=== PATIENT | female | born 1965 | race Caucasian/White ===

== ENCOUNTER → 2017-04-23 | Outpatient (CLI) | payer BC ==
[2017-04-23 14:53] LABS: BASO % 0.5 %; BASO ABS # 0.03 K/uL (0-0.2); COMPLETE YES; EOS % 0.5 %; HEMATOCRIT 43.5 % (37-47); LYMPH % 32.9 %; LYMPH ABS # 1.98 K/uL (1.2-3.4); MEAN CELL VOLUME 90.4 fL (80-100); MEAN CORPUSCULAR HEMOGLOBIN 30.1 pg (25-34); MEAN CORPUSCULAR HGB CONC 33.3 g/dl (32-36); MEAN PLATELET VOLUME 10.1 fL (7.4-10.4); MONO % 6.7 %; NEUT % 59.4 %; PLATELET COUNT 370 K/uL (130-400); RED BLOOD COUNT 4.81 M/uL (4.2-5.4); WHITE BLOOD COUNT 6.01 K/uL (4.8-10.8)
[2017-04-23 15:10] LABS: ALB/GLOB RATIO 1.1 (0.9-2); ALKALINE PHOSPHATASE 74 U/L (45-117); ALT/SGPT 33 U/L (12-78); AST/SGOT 22 U/L (15-37); BLOOD UREA NITROGEN 14 mg/dl (7-18); BUN/CREATININE RATIO 17.1 (10-20); CALCIUM 9.5 mg/dl (8.5-10.1); CARBON DIOXIDE 29 mmol/L (21-32); CHLORIDE 107 mmol/L (98-107); CHOLESTEROL 172 mg/dl (0-200); CHOLESTEROL/HDL RATIO 3.3; CREATININE 0.84 mg/dl (0.60-1.20); GLUCOSE 121 mg/dl (70-99); HDL CHOLESTEROL 52 mg/dl; LDL CHOLESTEROL CALCULATED 93 mg/dl; POTASSIUM 4.1 mmol/L (3.5-5.1); SODIUM 142 mmol/L (136-145); TRIGLYCERIDES 137 mg/dl (0-150); VERY LOW DENSITY LIPOPROT CALC 27 mg/dl
== END | disposition home or self-care (01) ==
LOC: C.LABSPEC 13:41
PROVIDERS: ATTEND Family Medicine
DX: E78.2 Mixed hyperlipidemia (principal); Z68.41 Body mass index [BMI] 40.0-44.9, adult; Z00.00 Encounter for general adult medical examination without abnormal findings

== ENCOUNTER 2019-11-15 05:05 | Inpatient (IN) ==
--- NOTE | 2019-10-16 15:13 | PAT Medication Instructions ---
Medication Instructions Date of Service October 16, 2019 Home Medications calcium carbonate [Tums] 200 mg PO UD PRN ranitidine HCl [Zantac 75] 75 mg PO BID PRN celecoxib [Celebrex] 200 mg PO QPM tramadol 50 mg PO Q6H PRN ASK your surgeon for instructions celecoxib [Celebrex] 200 mg PO QPM DO NOT take the morning of surgery calcium carbonate [Tums] 200 mg PO UD PRN ranitidine HCl [Zantac 75] 75 mg PO BID PRN Take morning of surgery With a small sip of water, OTHERWISE NOTHING TO EAT OR DRINK AFTER MIDNIGHT: tramadol 50 mg PO Q6H PRN (okay to take up to 4 hours prior to surgery if needed) Other Notes If you have any questions please call us at [phone] or [phone] or [phone] or [phone]
--- NOTE | 2019-10-17 11:12 | Anesthesiology Consultation ---
Date of Service October 17, 2019 Assessment & Plan (1) Encounter for pre-operative examination: PCP Clearance (Adrian) 11/02/19 = "Ms. Carrera was seen in the office and pre-op testing was reviewed and she is cleared for total knee arthroplasty." Chart Review Chart Review: Acceptable Risk for Surgery and Patient seen in Pre Admission Testing Teaching & Discussion Instructed NPO after midnight before surgery, except medications with 15 cc of water. Medication instructions provided according to the PAT guidelines. History Surgery Operation Date: 11/15/19 07:30 Proposed Procedures p Left Total Knee Arthroplasty - Josh Desai MD Height/Weight Height: 5 ft 4 in Weight: 120.8 kg Allergies Allergy/AdvReac Type Severity Reaction Status Date / Time Jzoqecs-Psr-Ape Reductase AdvReac Unknown Muscle Pain Verified 10/10/19 09:15 Inhibitor adhesive tape AdvReac Blister Verified 10/10/19 09:15 Medications Home Medications Medication Instructions Recorded Confirmed Last Taken calcium carbonate [Tums] 200 mg PO UD PRN 07/19/18 10/10/19 Unknown ranitidine HCl [Zantac 75] 75 mg PO BID PRN 08/31/18 10/10/19 08/30/18 21:30 celecoxib [Celebrex] 200 mg PO QPM 10/10/19 10/10/19 Unknown tramadol 50 mg PO Q6H PRN 10/10/19 10/10/19 Unknown Past Medical History Medical History (Updated 11/13/19 @ 09:57 by Odin Kitchen) GERD (gastroesophageal reflux disease) Hyperlipidemia No meds Morbid obesity No blood products Former JW, prefers not to have products "but will if really necessary" and states would "override" her decision anyway. OK to have type and screen. Osteoarthritis TMJ (dislocation of temporomandibular joint) ONCE LOCKED - SEVERAL YEARS AGO Exercise / Class Metabolic Activity II 4-5 Yardwork/Stairs/Walk up hill (does multiple flights of stairs daily, though somewhat limited by knee pain) Past Family History Family History Father History of pacemaker Renal cell carcinoma Myocardial infarction Mother Renal cell carcinoma Mother Family history of reaction to anesthesia PONV, hypotension Family history of diabetes mellitus Uncle Family hx of colon cancer Family history of diabetes mellitus Past Surgical History Surgical History History of anesthesia reaction Hypotension History of carpal tunnel release Rt History of hysterectomy History of right knee joint replacement 08/31/2018 [facility] Hx of arthroscopy of left knee Hx of arthroscopy of right knee Hx of laparoscopy Nausea and vomiting after administration of anesthetic agent Past Anesthesia History No Family Hx of Anesthesia Complications (other than father PONV) Pt reports remote h/o hypontension with one previous GA, (recalls 60's/40's) + PONV with GA, none with SAB with previous TKA History of PONV History of PONV and Hx of Motion Sickness Social History Smoking Status: Never smoker Do You Dip or Chew Tobacco: No Hx Alcohol Use: Yes Alcohol type: wine alcohol intake frequency: a few times a month Hx Substance Use: No substance use type: does not use Review of Systems Pt denies any recent chest pain, shortness of breath, palpitations, cough, fever or URI. Physical Exam Vital Signs BP: 126/84 P: 78bpm SPO2: 96% RA T: 98.3 F R: 16 Constitutional + obese ENMT Mouth: + chipped teeth (bottom L molar); no dental restorations and no loose teeth Thyromental Distance: < 3.5 Finger Breadths (3) Mallampati Class: II Neck normal visual inspection; neck extension not limited Respiratory normal respiratory effort Auscultation: lungs clear to auscultation bilaterally Cardiovascular Rate/Rhythm: regular rate and regular rhythm (with notable increase in rate with inspiration) Heart Sounds: no murmur Extremities: no edema Testing Laboratory Results 10/17/19 11:21 10/17/19 11:21 PT 9.8 Seconds (9.0-12.0) 10/17/19 11:21 INR 1.0 (0.9-1.1) 10/17/19 11:21 APTT 26.2 Seconds (21.0-31.0) 10/17/19 11:21 Hemoglobin A1c 6.0 % (4.5-5.6) H 10/17/19 11:21 Urine Color Yellow 10/17/19 11:21 Urine Appearance Clear (Clear) 10/17/19 11:21 Urine pH 5.5 (4.5-7.5) 10/17/19 11:21 Ur Specific [place] 1.026 (1.000-1.030) 10/17/19 11:21 Urine Protein Negative (Negative) 10/17/19 11:21 Urine Glucose (UA) Negative (Negative) 10/17/19 11:21 Urine Ketones Negative (Negative) 10/17/19 11:21 Urine Nitrite Negative (Negative) 10/17/19 11:21 Ur Leukocyte Esterase Negative (Negative) 10/17/19 11:21 Blood Type O Positive 10/17/19 11:21 Antibody Screen NEGATIVE 10/17/19 11:21 Electrocardiogram Date: 10/17/19 Findings: + NSR @ (66) Chest X-Ray Date: 10/17/19 Findings: + NAD
--- NOTE | 2019-10-17 12:06 | XRay Report ---
XR chest Pre-admission PA/Lat CLINICAL HISTORY: pat preoperative evaluation COMPARISON STUDY: No previous studies for comparison. FINDINGS: The bones soft tissues and hemidiaphragms are normal. The cardiomediastinal silhouette is n ormal. The lungs are clear. The pulmonary vasculature is normal. IMPRESSION: Negative chest. The above report was generated using voice recognition software. It may contain grammatical, syntax or spelling errors. Electronically signed by: Sebastián Mcwilliams M.D. 10/17/2019 12:04 PM
[2019-10-17 12:48] LABS: Basophils # (auto) 0.02 K/uL (0-0.2); Basophils % (auto) 0.4 %; Eosinophils # (auto) 0.02 K/uL (0-0.5); Eosinophils % (auto) 0.4 %; Hematocrit (blood only) 41.9 % (37-47); Lymphocytes # (auto) 1.99 K/uL (1.2-3.4); Lymphocytes % (auto) 41.4 %; Mean Corpuscular Hemoglobin 30.4 pg (25-34); Mean Corpuscular Hgb Conc 33.4 g/dL (32-36); Mean Corpuscular Volume 91.1 fL (80-100); Mean Platelet Volume 10.4 fL (7.4-10.4); Monocytes # (auto) 0.32 K/uL (0.11-0.59); Monocytes % (auto) 6.7 %; Neutrophils # (auto) 2.46 K/uL (1.4-6.5); Neutrophils % (auto) 51.1 %; Platelet Count 301 K/uL (130-400); RDW Coefficient of Variation 13.6 % (11.5-14.5); RDW Standard Deviation 44.9 fL (36.4-46.3); White Blood Count 4.81 K/uL (4.8-10.8)
[2019-10-17 12:58] LABS: Partial Thromboplastin Time 26.2 Seconds (21.0-31.0); Prothrombin Time 9.8 Seconds (9.0-12.0)
[2019-10-17 13:04] LABS: Albumin Level 3.7 gm/dl (3.4-5.0); Calcium 9.6 mg/dl (8.5-10.1); Creatinine Clr Calc Pharmacy 92.6 ml/min; Est GFR (African American) 85.2; Est GFR (Non-African American) 73.5; Potassium 4.2 mmol/L (3.5-5.1)
[2019-10-17 13:07] LABS: Estimated Average Glucose 126 mg/dl
[2019-10-17 13:24] LABS: Appearance Urine Clear (Clear); Bilirubin Urine Negative (Negative); Blood Urine Negative (Negative); Color Urine Yellow; Glucose Urine UA Negative (Negative); Ketones Urine Negative (Negative); Leukocyte Esterase Urine Negative (Negative); Nitrite Urine Negative (Negative); Protein Urine Negative (Negative); Specific Gravity Urine 1.026 (1.000-1.030); Urobilinogen Urine Negative (Negative); pH Urine 5.5 (4.5-7.5)
--- NOTE | 2019-11-14 18:19 | History and Physical Report ---
DATE OF ADMISSION: 11/15/2019 CHIEF COMPLAINT: Chronic left knee pain and instability. HISTORY OF PRESENT ILLNESS: This is a 54-year-old female patient of Dr. Desai'yvonne complaining of chronic left knee pain and instability, longstanding, now progressively getting worse. The patient has been diagnosed with end-stage osteoarthritis per clinical and radiographic exams. The patient has failed conservative treatment including intra-articular injections, Viscosupplementation, anti-inflammatories and tramadol and a brace. The patient has increased pain with weightbearing activities and her pain does interfere with her activities of daily living. The patient wished to proceed with a left total knee arthroplasty. PAST MEDICAL HISTORY: Osteoarthritis, TMJ, acid reflux, obesity, dental issues. SOCIAL HISTORY: Nonsmoker, occasional drinker. FAMILY HISTORY: Noncontributory. REVIEW OF SYSTEMS: Chronic left knee pain and instability. Otherwise, denies any shortness of breath, chest pain, nausea, vomiting or any other joint complaints. PAST SURGICAL HISTORY: Hysterectomy, right knee replacement and multiple arthroscopic knee surgeries. MEDICATIONS: 1. Tramadol 50 mg every 6 hours p.r.n. 2. Celebrex 200 mg daily. ALLERGIES: No known drug allergies. PHYSICAL EXAMINATION: GENERAL: Well-developed, well-nourished 54-year-old female in no acute distress. She is alert and oriented x3 and pleasant. HEENT: Normocephalic, atraumatic. Extraocular motions are intact. Pupils are equal and reactive to light. HEART: Regular rate and rhythm, no murmurs. LUNGS: Clear. ABDOMEN: Soft, nontender, bowel sounds present. EXTREMITIES: Left knee 0-115 degrees of range of motion. She has a neutral alignment. She has 5/5 strength. She has crepitation with passive range of motion. She has a mild effusion. Neurologically and neurovascularly she is intact in her left lower extremity. DIAGNOSES: Left knee end-stage osteoarthritis, TMJ, acid reflux, obesity, dental issues. PLAN: The patient was advised of her diagnosis. Indications, risks, benefits, postop course have all been reviewed. The patient wished to proceed with a left total knee arthroplasty. Necessary consent forms, preoperative testing and clearances will be obtained.
[2019-11-15] MEDS ORDERED: ROPIVACAINE 0.5% HCL/PF 150 MG, BUPIVACAINE 0.5% MPF 30 ML, EPINEPHrine 30MG/30ML (OR U... INSTIL SCH (06:00)
[2019-11-15] MEDS ORDERED: TRANEXAMIC ACID 1,000 MG **IV Pre-op IV SCH (06:00)
[2019-11-15] MEDS ORDERED: LR 15ML/HR IV SCH (06:00)
[2019-11-15] MEDS ORDERED: ACETAMINOPHEN 500 MG TAB PO SCH (06:00)
[2019-11-15] MEDS ORDERED: CEFAZOLIN 2000MG 2,000 MG/15 ML SYR IV SCH (06:00)
[2019-11-15] MEDS ORDERED: TRANEXAMIC ACID 1,000 MG **IV Intra-op IV SCH (06:00)
[2019-11-15] MEDS ORDERED: dexAMETHasone 4 MG TAB PO SCH (06:00)
[2019-11-15] MEDS ORDERED: CeleBREX 200 MG CAP PO SCH (06:00)
[2019-11-15] MEDS ORDERED: CEFAZOLIN 3000MG 72.5 ML IV SCH (06:00)
[2019-11-15] MEDS ORDERED: FAMOTIDINE 20 MG TAB PO SCH (06:00)
[2019-11-15] MEDS ORDERED: LR 500ML BOLUS, THEN 15ML/HR IV SCH (06:00)
[2019-11-15] MEDS ORDERED: METOCLOPRAMIDE HCL 10 MG TABLET PO SCH (06:00)
[2019-11-15] MEDS ORDERED: GABAPENTIN 900 MG DOSE PO SCH (06:00)
[2019-11-15] MEDS ORDERED: BUPIVACAINE 0.5 % 5 MG/1 ML PF 10ML VIAL ONE (06:37)
[2019-11-15] MEDS ORDERED: ROPIVACAINE 0.5% 5 MG/ML 30 ML VIAL ONE (06:38)
[2019-11-15] MEDS ORDERED: ONDANSETRON INJ 2 MG/ML 2 ML VIAL ONE (06:43)
[2019-11-15] MEDS ORDERED: PROPOFOL IV EMULSION 10 MG/ML 20 ML VIAL IV ONE ×2 (06:43→08:47)
[2019-11-15] MEDS ORDERED: MIDAZOLAM HCL 1 MG/ML 2ML VIAL ONE ×2 (06:43→07:37)
[2019-11-15] MEDS ORDERED: LIDOCAINE HCL 2% 2 ML VIAL/AMP(20MG/ML) INFIL ONE ×2 (06:43→08:32)
[2019-11-15] MEDS ORDERED: fentaNYL citrate 100 MCG/2 ML VIAL ONE (06:43)
--- NOTE | 2019-11-15 06:58 | History & Physical Bridge Note ---
Date of Service November 15, 2019 History & Physical Bridge Note I have examined the patient, reviewed the History & Physical and in the interval since the performance of the History & Physical I have noted the following changes of clinical significance: no changes noted
[2019-11-15] MEDS ORDERED: HYDROmorphone INJ 2 MG/ML SYR/VIAL IV PRN (07:00)
[2019-11-15] MEDS ORDERED: ONDANSETRON INJ 2 MG/ML 2 ML VIAL IV PRN ×2 (07:00→10:55)
[2019-11-15] MEDS ORDERED: fentaNYL citrate 100 MCG/2 ML VIAL IV PRN (07:00)
[2019-11-15] MEDS ORDERED: ATROPINE SULFATE 0.1 MG/ML 10ML SYR IV PRN (07:00)
[2019-11-15] MEDS ORDERED: METOCLOPRAMIDE HCL INJ 5 MG/ML 2 ML VIAL IV PRN (07:00)
[2019-11-15] MEDS ORDERED: ePHEDrine sulfate 50 MG/ML AMP IV PRN (07:00)
[2019-11-15] MEDS ORDERED: PROMETHAZINE HCL 12.5 MG in SODIUM CHLORIDE 0.9% 50 ML IV PRN (07:00)
[2019-11-15] MEDS ORDERED: BACITRACIN INJ 50,000 UNIT VIAL ONE (07:04)
[2019-11-15] MEDS ORDERED: ORTHO JOINT ANESTHETIC ONE (07:04)
[2019-11-15] MEDS ORDERED: PHENYLEPHRINE HCL 10 MG/ML VIAL ONE (08:32)
[2019-11-15] MEDS ORDERED: PHENYLEPHRINE 100MCG/ML 5ML SYR ONE (08:32)
[2019-11-15] MEDS ORDERED: ePHEDrine sulfate 50 MG/ML AMP ONE (08:32)
--- NOTE | 2019-11-15 09:44 | Post Operative Brief Note ---
Immediate Post Op Note v1 Date of Surgery November 15, 2019 Pre & Post Diagnosis Operation Date: 11/15/19 07:15 Pre-Op Diagnosis: Unilateral Primary Osteoarthritis, Left Knee, morbid obesity BMI 45.4 Post-Op Diagnosis: Unilateral Primary Osteoarthritis, Left Knee, morbid obesity BMI 45.4 I identified the patient and participated in the time-out.: Yes Procedure Operation Date: 11/15/19 07:15 Actual Procedures p Left Total Knee Arthroplasty(Left), increased difficulty due to morbid obesity BMI 45.4, superficial wound VAC application- Josh Desai MD Surgeon Josh Desai MD Loan Examiner MARLEY Nicholson Estimated Blood Loss 5 Findings Consistent with Post-Op Diagnosis Specimens Bone cuts Drains Hemovac Drain Anesthesia Type MAC Spinal Regional Complications none Disposition Accompanied Patient To Recovery: No Disposition: Recovery Room Overlapping Procedure I was present for: the critical portions of procedure. I was immediately available: during the entire case.
--- NOTE | 2019-11-15 09:53 | Operative Report ---
Post Operative Report Pre & Post Diagnosis Operation Date: 11/15/19 07:15 Pre-Op Diagnosis: Unilateral Primary Osteoarthritis, Left Knee, morbid obesity BMI 45.4 Post-Op Diagnosis: Unilateral Primary Osteoarthritis, Left Knee, morbid obesity BMI 45.4 I identified the patient and participated in the time-out.: Yes Procedure Operation Date: 11/15/19 07:15 Actual Procedures p Left Total Knee Arthroplasty(Left), increased difficulty BMI 45.4, application superficial wound VAC- Josh Desai MD Surgeon Josh Desai MD Clinical Laboratory Science Professor MARLEY Nicholson Estimated Blood Loss 5 Findings Consistent with Post-Op Diagnosis Specimens Bone cuts Drains 2 Hemovac Anesthesia Type MAC Spinal Regional Complications none Disposition Accompanied Patient To Recovery: No Disposition: Recovery Room Indications 54-year-old female with severe left knee osteoarthritis progressive over time [id number] patellofemoral joint with bone loss and bone wear of the patella. Patient has tricompartmental DJD with neutral alignment. Patient is also morbidly obese. Patient had a right knee replacement in the past and did quite well with that procedure. Description of Procedure The patient was taken to the operating room and anesthetized under spinal MAC regional. Patient was placed supine on the the operating table. A pneumatic tourniquet was placed about the obese left upper thigh. The knee exam demonstrated 15 degree flexion contracture further flexion to 100 degrees and no instability. The involved leg was elevated exsanguinated with Esmarch bandage and the pneumatic tourniquet was raised to 350 millimeters mercury. A slightly larger than typical longitudinal incision was made across the anterior knee for exposure in the obese knee. Skin flaps were elevated. An incision was made into the medial retinaculum and extended up into the mid third of the quadriceps tendon and extended down to the tibial tubercle. Intra-articular findings demonstrated severe patellofemoral DJD with bone loss patella due to chronic wear large patellofemoral osteophytes and eburnated bone with ridging. Patient had tricompartmental osteoarthritic disease in the other compartments intact cruciate ligaments. Patient had significant obese knee. The knee was exposed by excising cruciate ligaments and menisci. The infrapatellar fat pad was resected. The fat pad over the anterior femur at the upper aspect of the articular surface was resected for placement of the component in that area. A subperiosteal peel lateral release was performed around the patella. The Martinez & Nephew journey 2.0 total knee arthroplasty system was utilized for the procedure. The custom femoral cutting guide was pinned in position. The distal femoral cut was made. The size 5, 5 in 1 cutting block was placed. The anterior posterior and chamfer cuts were made. The knee was extended and a free hand cut technique was performed to the patella. The patella with was measured and the width was reproduced using a 38 symmetrical patella component. 3 drill holes are made for the patella component pegs. The tibia was then subluxed. The custom tibial cutting block was pinned in position and the proximal tibial cut was made with the oscillating saw. The size 4 tibial trial was externally rotated in line with the tibial tubercle and pinned in position. The punch for the stem was used. The femoral trial was inserted and centered the notch cutting devices were used and the collet was placed. Tibial trials were used for the insert. The size 12 trial gave balanced ligaments through full range of motion. Patient has 0 through 125 degrees range of motion. Patella tracking was assessed with range of motion. The patella tracked centrally. The trials were removed. The Orthomix anesthetic cocktail was injected per protocol. The cut bone surfaces and soft tissue were copiously irrigated with antibiotic solution with bacitracin. The final components were cemented with Simplex cement. The final components were Martinez and journey 2.0 size 5 left posterior stabilized femoral component, 4 tibial baseplate, 12 posterior stabilized tibial polyethylene insert, 38 symmetrical patella. While the cement cured the Betadine soak was used per protocol. When the cement cured the knee was copiously irrigated with pulsatile lavage antibiotic solution with bacitracin. 2 drains were brought out laterally connected to Hemovac. The quadriceps tendon and medial retinaculum were closed with interrupted [id number] #1 Vicryl sutures. The knee was taken through full range of motion and repair was secure. The subcutaneous tissues were closed with #1 Vicryl and 2-0 Vicryl sutures. The skin was closed with amairani. A Dede superficial wound VAC was applied. The tourniquet was let down and the patient had good capillary refill to the extremity. The patient tolerated the procedure well. My physician oral surgery assistant MARLEY Nicholson assisted in the procedure including prepping draping leg positioning soft tissue retraction instrument management and assisted in the closure, superficial wound VAC application,dressings application and will participate in postoperative care the patient. There was increased level difficulty due to morbid obesity BMI 45.4 adding approximately 25 minutes to the procedure. I attest to the content of the Intraoperative Record and any orders documented therein. Any exceptions are noted below.
--- NOTE | 2019-11-15 10:22 | XRay Report ---
XR knee LT 1 or 2V routine HISTORY: 54 years-old Female Surgical Post Op left knee total joint arthroplasty. History of degener ative joint disease COMPARISON: None available TECHNIQUE: 2 views of the left knee FINDINGS: Left knee total joint arthroplasty and patella resurfacing demonstrates satisfactory alignment. No op aque foreign body or acute fracture. Anterior midline skin amairani are noted along with expected post surgical soft tissue swelling and deep tissue air with surgical drainage catheter. IMPRESSION: Satisfactory alignment of the left knee total joint arthroplasty. ACT 112: Negative or not required by law. The above report was generated using voice recognition software. It may contain grammatical, syntax o r spelling errors. Electronically signed by: Kyle Kendall M.D. 11/15/2019 10:21 AM
[2019-11-15] MEDS ORDERED: MAGNESIUM HYDROXIDE SUSP 30 ML UDC PO PRN (10:55)
[2019-11-15] MEDS ORDERED: bisacodyL 10 MG SUPP PR PRN (10:55)
[2019-11-15] MEDS ORDERED: CALCIUM CARBONATE 500 MG CHEWABLE TAB PO PRN (10:55)
[2019-11-15] MEDS ORDERED: NALOXONE HCL 0.4 MG/1 ML VIAL/CARP IV PRN (10:55)
[2019-11-15] MEDS ORDERED: HYDROmorphone INJ 0.5 MG/0.5 ML SYR IV PRN (10:55)
--- NOTE | 2019-11-15 11:04 | Anesthesiology Progress Note ---
Date of Service November 15, 2019 Anesthesia Post Procedure Vital Signs Vital Signs: Temp Pulse Pulse Resp BP Pulse Ox 11/15/19 10:35 75 15 96/63 L 97 11/15/19 10:25 69 15 98/64 L 96 11/15/19 10:15 36.9 C 61 15 99/65 L 95 11/15/19 10:05 76 14 98/61 L 95 11/15/19 09:55 77 15 102/60 94 11/15/19 09:46 37.2 C 85 15 100/63 94 11/15/19 05:34 36.7 C 76 18 88/56 L 94 Transfer of Care Handoff Completed per policy Notes Mental Status: alert / awake / arousable and participated in evaluation Patient Amnestic to Procedure: Yes Nausea / Vomiting: adequately controlled Pain: adequately controlled Airway Patency, RR, SpO2: stable & adequate BP & HR: stable & adequate Hydration State: stable & adequate Neuraxial Anesthesia: was administered and sensory block is resolving Anesthetic Complications: no major complications apparent
[2019-11-15] MEDS: SODIUM CHLORIDE 0.9% 1000ML 1,000 ML IV SCH ×2 (11:07→21:04)
--- NOTE | 2019-11-15 13:00 | Hospitalist Consultation ---
Date of Consultation November 15, 2019 Assessment & Plan (1) Status post total left knee replacement: - Pain management, bowel regimen and DVT ppx with xarelto per the primary team - Follow CBC with am labs - Pt is a former Jehovas witness and states that she does not prefer to have transfusion of any blood products but would consider this if "it were really necessary" - PT/OT consults - plans to follow with [facility] in [place] as outpt upon dc (2) Prediabetes: - A1C on 10/16 was 6.0 - discussed having fasting repeat labs as outpatient sometime in January to monitor, she also has a routine PCP appt in April. - Diet of less carbs, less sugar was encouraged. Pt agreeable to DM diet while here in hospital. - Will trend glucose with morning labs, follow up with PCP regarding initiation of metformin vs aggressive weight loss after surgical procedure and with improved ability to exercise - Recommend glucometer upon discharge to monitor glucose - Consider clinical informatics educator consultation prior to discharge. (3) Morbid obesity with BMI of 40.0-44.9, adult: - Diet and exercise to be encouraged upon discharge - BMI of 45.4 (4) GERD (gastroesophageal reflux disease): - Continue ranitidine 75 mg BID, tums prn (5) Osteoarthritis: - Pain managment with oxycodone and dilaudid prn, holding outpt ibuprofen, continue celebrex (6) DVT prophylaxis: teds on nonaffected leg, xarelto 10 mg PO to start tonight CODE: FULL Dispo: From home, likely discharge within 1-2 days. Thank you for involving us in the care of Mrs. Carrera. Please do not hesitate to call with questions or concerns. Medicine service will follow along. History of Present Illness Reason for Consultation: Medical management Requesting Physician: Dr. Desai Attending Physician: Josh Desai MD History of Present Illness This is a 54 yo F with PMHx of prediabetes, morbid obesity with BMI of 45.4, GERD, HLD, osteoarthritis and hx of right TKA, who underwent elective Left total knee arthroplasty by Dr. Desai on 11/15/19. She reports doing well. Pt had eaten and drank something since coming up to the floor without difficulty. Last BM was this morning, urinated in bed but was due to anesthesia not yet worn off, no hx of incontinence. She anticipates home discharge and will do PT/OT at [facility] in [place] as outpatient. Discussion regarding diet and exercise was held with pt and explanation of A1C being 6.0, and why she was on a diabetic diet. All her questions and concerns were addressed. Allergies Allergy/AdvReac Type Severity Reaction Status Date / Time Dlxlmig-Gyz-Mhs Reductase AdvReac Unknown Muscle Pain Verified 11/15/19 05:33 Inhibitor adhesive tape AdvReac Blister Verified 11/15/19 05:33 Home Medications Home Medications Medication Instructions Recorded Confirmed Type calcium carbonate [Tums] 200 mg PO UD PRN 07/19/18 11/15/19 History ranitidine HCl [Zantac 75] 75 mg PO BID PRN 08/31/18 11/15/19 History celecoxib [Celebrex] 200 mg PO QPM 10/10/19 11/15/19 History tramadol 50 mg PO Q6H PRN 10/10/19 11/15/19 History ibuprofen 400 mg PO Q6H PRN 11/15/19 11/15/19 History Patient History Family History Father History of pacemaker Renal cell carcinoma Myocardial infarction Mother Renal cell carcinoma Mother Family history of reaction to anesthesia PONV, hypotension Family history of diabetes mellitus Uncle Family hx of colon cancer Family history of diabetes mellitus Social History Preferred Language: Palauan Communication Ability: Effective Visual Impairment: Limited Marketing Producer Required: No Beliefs That Will Affect Care: Cheondoism Cheondoism Beliefs: christian - no blood products marital status: twice Current Living Situation: Spouse current occupational status: employed 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 [place] Other Information That Helps Us Care for You: No Feels Safe at Home: Yes Safety Concerns: Feels Safe At This Time Smoking Status: Never smoker Do You Dip or Chew Tobacco: No ; Second Hand Exposure: Yes (as a child) ; Hx Alcohol Use: Yes Alcohol type: wine Hx Substance Use: No Review of Systems Review of Systems: Constitutional: No fever, sweats or chills Eyes: No diplopia, no worsening or blurred vision ENT: normal hearing, no trouble swallowing Respiratory: No cough, sputum, dyspnea at rest or on exertion Cardiovascular: No chest pain, tightness or palpitations Abdomen: No pain, nausea, vomiting, diarrhea or constipation Musculoskeletal: No joint pain, calf pain, swelling Neurologic: No weakness, numbness/tingling, or balance problems Psychiatric: No anxiety or depression Skin: No rash or itch Physical Exam Physical Exam: General: awake, alert, no apparent distress Head: Normocephalic, atraumatic ENT: PERRL, EOMI, no pharyngeal exudate, mucous membranes moist Chest: Clear to auscultation, on room air, no adventitious breath sounds Cardiac: Regular rate and rhythm, no murmur, no JVD, normal peripheral pulses, good capillary refill Abdominal: NABS x 4 quadrants, soft, nontender to palpation, no rebound, guarding or tenderness Extremities: + LLE with PINA bandage in place, dressing nonsaturated, + hemovac drain, icepack in place, no peripheral edema or erythema, calfs nontender to palpation Psych: Normal mood and affect Neuro: AAO x 3, no gross motor deficits, + able to move feet and wiggle toes, sensation intact distally, speech is clear Results & Data Vital Signs (Past 12 Hours) Vital Signs Temp Pulse Pulse Pulse Resp BP Pulse Ox 11/15/19 12:45 36.4 C L 74 14 101/67 94 11/15/19 11:45 36.9 C 69 14 104/69 93 11/15/19 11:15 36.7 C 70 14 97/64 L 92 11/15/19 10:45 36.8 C 70 14 102/70 97 11/15/19 10:35 75 15 96/63 L 97 11/15/19 10:25 69 15 98/64 L 96 11/15/19 10:15 36.9 C 61 15 99/65 L 95 11/15/19 10:05 76 14 98/61 L 95 11/15/19 09:55 77 15 102/60 94 11/15/19 09:46 37.2 C 85 15 100/63 94 11/15/19 05:34 36.7 C 76 18 88/56 L 94 PG Care Time/CCT Total # of Minutes Spent Total Time Spent with Patient: Total time spent is greater than 50% in coordination of care (as documented) at patient's floor/unit and/or counseling patient: (1) GERD (gastroesophageal reflux disease) Esophagitis presence: esophagitis presence not specified Qualified Code(s): K21.9 - Gastro-esophageal reflux disease without esophagitis
[2019-11-15] MEDS: ACETAMINOPHEN 500 MG TAB PO SCH ×2 (13:37→21:37)
[2019-11-15] MEDS: OXYCODONE HCL IR 5 MG TAB (IMMEDIATE RELEASE) PO PRN ×2 (15:55→20:46)
[2019-11-15] MEDS: CEFAZOLIN 2000MG 2,000 MG/15 ML SYR IV SCH ×2 (16:05→23:18)
[2019-11-15] MEDS: DOCUSATE SODIUM 100 MG CAP PO SCH (21:37)
[2019-11-15] MEDS: CeleBREX 200 MG CAP PO SCH (21:37)
[2019-11-15] MEDS: SENNA 8.6 MG TAB PO SCH (21:37)
[2019-11-16] MEDS: OXYCODONE HCL IR 5 MG TAB (IMMEDIATE RELEASE) PO PRN ×6 (01:22→23:51)
[2019-11-16] MEDS: ACETAMINOPHEN 500 MG TAB PO SCH ×3 (06:08→21:39)
[2019-11-16 06:33] LABS: Hematocrit (blood only) 35.3 % (37-47); Hemoglobin 11.8 g/dL (12.0-16.0); Mean Corpuscular Hemoglobin 30.4 pg (25-34); Mean Corpuscular Hgb Conc 33.4 g/dL (32-36); Mean Platelet Volume 10.1 fL (7.4-10.4); Platelet Count 279 K/uL (130-400); RDW Coefficient of Variation 13.6 % (11.5-14.5); RDW Standard Deviation 45.2 fL (36.4-46.3); Red Blood Count 3.88 M/uL (4.2-5.4); White Blood Count 10.41 K/uL (4.8-10.8)
[2019-11-16 07:03] LABS: BUN Creatinine Ratio 17.8 (10-20); Calcium 8.5 mg/dl (8.5-10.1); Creatinine Clr Calc Pharmacy 89.1 ml/min; Est GFR (African American) 81.8; Est GFR (Non-African American) 70.6; Potassium 3.8 mmol/L (3.5-5.1)
[2019-11-16] MEDS: CeleBREX 200 MG CAP PO SCH ×2 (08:27→21:39)
[2019-11-16] MEDS: MULTIVITAMIN TAB PO SCH (08:27)
[2019-11-16] MEDS: RIVAROXABAN 10 MG TABLET PO SCH (08:27)
[2019-11-16] MEDS: DOCUSATE SODIUM 100 MG CAP PO SCH ×2 (08:27→21:39)
--- NOTE | 2019-11-16 09:13 | Orthopedic Progress Note ---
Date of Service November 16, 2019 Assessment & Plan (1) Status post total left knee replacement: POD #1, Left TKA PT/ OT DVT proph- Xarelto D/C Plans- Home w OPPT As per medicine. Subjective POD #1 Doing well. Denies SOB, CP, N/V+. Pain controlled well. Wishes for OPPT on D/C. Physical Exam Physical Exam: Left knee dressings c/d/i, no drainage. Toes/ ankle mobile. No calf tenderness. N/V+ A&Ox3. Results & Data Vital Signs (Past 12 Hours) Vital Signs Temp Pulse Resp BP Pulse Ox 11/16/19 07:32 36.8 C 71 18 120/74 96 11/16/19 03:39 37.0 C 79 16 108/61 95 11/15/19 23:48 37.0 C 81 16 110/69 93
--- NOTE | 2019-11-16 16:44 | Hospitalist Progress Note ---
Date of Service November 16, 2019 Assessment & Plan (1) Status post total left knee replacement: - Pain management, bowel regimen and DVT ppx with xarelto per the primary team - Follow CBC with am labs - Pt is a former Jehovas witness and states that she does not prefer to have transfusion of any blood products but would consider this if "it were really necessary" - PT/OT consults - plans to follow with [facility] in [place] as outpt upon dc - Doing well today. (2) Prediabetes: - A1C on 10/16 was 6.0 - discussed having fasting repeat labs as outpatient sometime in January to monitor, she also has a routine PCP appt in April. - Diet of less carbs, less sugar was encouraged. Pt agreeable to DM diet while here in hospital. - Will trend glucose with morning labs, follow up with PCP regarding initiation of metformin vs aggressive weight loss after surgical procedure and with improved ability to exercise - Recommend glucometer upon discharge to monitor glucose - Consider ems educator consultation prior to discharge. (3) Morbid obesity with BMI of 40.0-44.9, adult: - Diet and exercise to be encouraged upon discharge - BMI of 45.4 (4) GERD (gastroesophageal reflux disease): - Continue ranitidine 75 mg BID, tums prn (5) Osteoarthritis: - Pain managment with oxycodone and dilaudid prn, holding outpt ibuprofen, continue celebrex (6) DVT prophylaxis: teds on nonaffected leg, xarelto 10 mg PO to start tonight Given medical stability, Hospital Medicine team will sign off. Please re-consult with any questions or concerns. Thank you for letting us assist in the care of this patient! Subjective She did well today and walked around. She has minimal pain today, but had some overnight. Reports no fevers/chills, chest pain, shortness of breath, abdominal pain, nausea, or vomiting. Physical Exam Constitutional: WD/WN, vitals as above Eyes: EOM intact bilaterally; no conjunctival abnormality ENMT: external ear and nose normal, oropharynx normal Neck: trachea midline, no thyromegaly normal visual inspection Respiratory: normal respiratory effort, lungs clear to auscultation no respiratory distress Cardiovascular: RRR, no murmur, no edema Gastrointestinal (Abdomen): Inspection/Auscultation: abdomen normal to inspection; abdomen not distended Musculoskeletal: no cyanosis or clubbing, extremities motor strength 5/5 Extremities: + extremities abnormal to inspection (Left knee bandaged) Skin: no rashes, warm and dry Neurologic: moves all extremities and awake Psychiatric: Orientation: alert, oriented to person and cooperative Results & Data Vital Signs (Past 12 Hours) Vital Signs Temp Pulse Resp BP Pulse Ox 11/16/19 15:22 92 11/16/19 15:09 37.0 C 83 17 110/71 94 11/16/19 11:34 36.6 C 75 18 110/73 92 11/16/19 07:32 36.8 C 71 18 120/74 96 PG Care Time/CCT Total # of Minutes Spent Total Time Spent with Patient: Total time spent is greater than 50% in coordination of care (as documented) at patient's floor/unit and/or counseling p atient: (1) GERD (gastroesophageal reflux disease) Esophagitis presence: esophagitis presence not specified Qualified Code(s): K21.9 - Gastro-esophageal reflux disease without esophagitis
[2019-11-16] MEDS: SENNA 8.6 MG TAB PO SCH (21:39)
[2019-11-17] MEDS: ACETAMINOPHEN 500 MG TAB PO SCH (06:21)
[2019-11-17 06:29] LABS: Hematocrit (blood only) 34.3 % (37-47); Hemoglobin 11.4 g/dL (12.0-16.0); Mean Corpuscular Hemoglobin 30.4 pg (25-34); Mean Corpuscular Hgb Conc 33.2 g/dL (32-36); Mean Corpuscular Volume 91.5 fL (80-100); Mean Platelet Volume 9.8 fL (7.4-10.4); Platelet Count 250 K/uL (130-400); RDW Coefficient of Variation 13.7 % (11.5-14.5); RDW Standard Deviation 45.6 fL (36.4-46.3); Red Blood Count 3.75 M/uL (4.2-5.4); White Blood Count 7.95 K/uL (4.8-10.8)
[2019-11-17 06:49] LABS: Calcium 8.4 mg/dl (8.5-10.1); Creatinine Clr Calc Pharmacy 95.4 ml/min; Est GFR (African American) 88.8; Est GFR (Non-African American) 76.6; Potassium 3.7 mmol/L (3.5-5.1)
--- NOTE | 2019-11-17 07:04 | Orthopedic Progress Note ---
Date of Service November 17, 2019 Assessment & Plan (1) Status post total left knee replacement: POD #2, Left TKA PT/ OT DVT proph- Xarelto D/C Plans- Home w OPPT today. As per medicine. Subjective POD #2 Doing well. Denies SOB, CP, N/V+. Pain controlled well. Wishes for OPPT on D/C. Physical Exam Physical Exam: Left knee wound vac in place, no drainage. No erythema. No calf tenderness. Toes/ ankle mobile. A&Ox3 Results & Data Vital Signs (Past 12 Hours) Vital Signs Temp Pulse Resp BP Pulse Ox 11/16/19 22:59 37.1 C 90 16 119/70 95
[2019-11-17 08:01] VITALS: BP 123/80; PULSE 79; TEMP 98.4; O2SAT 94
[2019-11-17] MEDS: OXYCODONE HCL IR 5 MG TAB (IMMEDIATE RELEASE) PO PRN (08:33)
[2019-11-17] MEDS: RIVAROXABAN 10 MG TABLET PO SCH (08:34)
[2019-11-17] MEDS: DOCUSATE SODIUM 100 MG CAP PO SCH (08:34)
[2019-11-17] MEDS: MULTIVITAMIN TAB PO SCH (08:34)
[2019-11-17] MEDS: CeleBREX 200 MG CAP PO SCH (08:34)
== END 2019-11-17 11:04 | disposition home or self-care (01) | DRG 470 ==
LOC: ASU 05:05 → 3E 09:50